=== PATIENT | female | born 1995 | race African-American/Black ===

== ENCOUNTER 2017-10-18 17:09 | Emergency (ER) | payer SELFPAY ==
[~2017-10-18 17:09] MED LIST: AMOX875 PO; IBUP800T23 PO
[2017-10-18 17:12] VITALS: BP 140/77; PULSE 97; RESP 16; TEMP 98.2; O2SAT 97
[2017-10-18 19:08] LABS: AUTOMATED NEUTROPHIL # 5.7 TH/MM3 (1.8-7.7); BASOPHIL # 0.1 TH/MM3 (0-0.2); BASOPHIL % 0.7 % (0.0-2.0); EOSINOPHIL # 0.2 TH/MM3 (0-0.4); EOSINOPHIL % 2.6 % (0.0-4.0); HEMATOCRIT 34.2 % (35.0-46.0); HEMOGLOBIN 11.1 GM/DL (11.6-15.3); LYMPH % 25.9 % (9.0-44.0); LYMPHOCYTE # 2.3 TH/MM3 (1.0-4.8); MEAN CORPUSCULAR HGB CONC 32.4 % (32.0-36.0); MEAN PLATELET VOLUME 9.1 FL (7.0-11.0); MONO % 6.4 % (0.0-8.0); MONOCYTE # 0.6 TH/MM3 (0-0.9); NEUT % 64.4 % (16.0-70.0); PLATELET COUNT 348 TH/MM3 (150-450); RED BLOOD COUNT 4.62 MIL/MM3 (4.00-5.30); RED CELL DISTRIBUTION WIDTH 15.8 % (11.6-17.2); WHITE BLOOD COUNT 8.9 TH/MM3 (4.0-11.0)
[2017-10-18 19:27] LABS: BICARBONATE 32.9 MEQ/L (21.0-32.0); CALCIUM 8.8 MG/DL (8.5-10.1); CREATININE 0.78 MG/DL (0.50-1.00)
[2017-10-18] MEDS ORDERED: BP MED PO (19:49)
[2017-10-18] MEDS ORDERED: KETOROLAC TROMETHAMINE 30 MG/ML (IVP) VIAL IV PUSH ONE (20:15)
--- NOTE | 2017-10-18 20:20 | PD ---
HPI Chief Complaint: Abdominal Pain Time Seen by Provider: 19:59 Travel History International Travel<30 days: No Contact w/Intl Traveler<30days: No Traveled to known affect area: No History of Present Illness HPI 21-year-old female here for evaluation of abdominal pain. The patient reports having pain in her mid abdomen for the last 2-3 weeks. She describes the pain as sharp/pressure, worse with movements and lifting. She denies history of abdominal surgeries. No fevers or chills. No nausea or vomiting. No urinary symptoms. No vaginal bleeding or discharge. She is sexually active with one partner and believe she is in a monogamous relationship. Basic labs and urine GC and chlamydia were ordered by the nurse practitioner in triage. [facility] Past Medical History Hypertension: Yes ?: Not LMP: 09/28/17 : 0 Past Surgical History Surgical History: No Previous Surgery Social History Alcohol Use: Yes Tobacco Use: No Substance Use: No (MARIJUANA) Allergies-Medications (Allergen,Severity, Reaction): Coded Allergies: No Known Allergies (Unverified Allergy, Unknown, 10/18/17) Reported Meds & Prescriptions Reported Meds & Active Scripts Active Reported [Bp Med] PO DAILY Review of Systems Except as stated in HPI: all other systems reviewed are Neg Physical Exam Narrative GENERAL: Well-developed, well-nourished, overweight, comfortable, no apparent distress. SKIN: Focused skin assessment warm/dry. No rash. HEAD: Atraumatic. Normocephalic. EYES: Pupils equal and round. No scleral icterus. No injection or drainage. ENT: Mucous membranes pink and moist. NECK: Trachea midline. No JVD. CARDIOVASCULAR: Regular rate and rhythm. No murmur appreciated. RESPIRATORY: No accessory muscle use. Clear to auscultation. Breath sounds equal bilaterally. GASTROINTESTINAL: Abdomen soft, nondistended. Mild periumbilical tenderness without peritoneal signs. Rest of abdomen is soft and nontender. No hernias. MUSCULOSKELETAL: No obvious deformities. No clubbing. No cyanosis. No edema. NEUROLOGICAL: Awake and alert. No obvious cranial nerve deficits. Motor grossly within normal limits. Normal speech. PSYCHIATRIC: Appropriate mood and affect; insight and judgment normal. Data Data Last Documented VS Vital Signs Date Time Temp Pulse Resp B/P (MAP) Pulse Ox O2 Delivery O2 Flow Rate FiO2 10/18/17 17:12 98.2 97 16 140/77 (98) 97 Orders Orders Basic Metabolic Panel (Bmp) (10/18/17 17:14) Complete Blood Count With Diff (10/18/17 17:14) Urinalysis - C+S If Indicated (10/18/17 17:14) Ed Urine Pregnancytest Poc (10/18/17 17:14) Gc And Chlamydia Pcr (10/18/17 17:14) Ct Abd/Pel W Iv Contrast(Rout) (10/18/17 20:03) Ketorolac Inj (Toradol Inj) (10/18/17 20:15) Iohexol 350 Inj (Omnipaque 350 Inj) (10/18/17 20:25) Labs Laboratory Tests Test 10/18/17 18:34 10/18/17 21:41 White Blood Count 8.9 TH/MM3 Red Blood Count 4.62 MIL/MM3 Hemoglobin 11.1 GM/DL Hematocrit 34.2 % Mean Corpuscular Volume 74.0 FL Mean Corpuscular Hemoglobin 24.0 PG Mean Corpuscular Hemoglobin Concent 32.4 % Red Cell Distribution Width 15.8 % Platelet Count 348 TH/MM3 Mean Platelet Volume 9.1 FL Neutrophils (%) (Auto) 64.4 % Lymphocytes (%) (Auto) 25.9 % Monocytes (%) (Auto) 6.4 % Eosinophils (%) (Auto) 2.6 % Basophils (%) (Auto) 0.7 % Neutrophils # (Auto) 5.7 TH/MM3 Lymphocytes # (Auto) 2.3 TH/MM3 Monocytes # (Auto) 0.6 TH/MM3 Eosinophils # (Auto) 0.2 TH/MM3 Basophils # (Auto) 0.1 TH/MM3 CBC Comment DIFF FINAL Differential Comment Blood Urea Nitrogen 9 MG/DL Creatinine 0.78 MG/DL Random Glucose 92 MG/DL Calcium Level 8.8 MG/DL Sodium Level 138 MEQ/L Potassium Level 3.6 MEQ/L Chloride Level 99 MEQ/L Carbon Dioxide Level 32.9 MEQ/L Anion Gap 6 MEQ/L Estimat Glomerular Filtration Rate 113 ML/MIN Urine Color YELLOW Urine Turbidity CLEAR Urine pH 7.5 Urine Specific [place] GREATER THAN 1.050 Urine Protein 30 mg/dL Urine Glucose (UA) NEG mg/dL Urine Ketones NEG mg/dL Urine Occult Blood NEG Urine Nitrite NEG Urine Bilirubin NEG Urine Urobilinogen LESS THAN 2.0 MG/DL Urine Leukocyte Esterase NEG Urine WBC 1 /hpf Urine Squamous Epithelial Cells 3 /hpf Microscopic Urinalysis Comment CULT NOT INDICATED MDM Medical Decision Making Medical Screen Exam Complete: Yes Emergency Medical Condition: Yes Medical Record Reviewed: Yes Differential Diagnosis Musculoskeletal pain, appendicitis, colitis, UTI, cystitis, , ectopic , ovarian cyst, ovarian torsion, PID Narrative Course Vital signs reviewed. CBC: WBC 8.9, hemoglobin 11.1, hematocrit 34.2, platelets 348. BMP is unremarkable. Urine is negative. UA: Is not suggestive of UTI. CT abdomen pelvis: CONCLUSION: 1. 2.4 x 2.6 cm cyst within the left ovary. The reproductive organs are otherwise intact. 2. CT scan of the abdomen and pelvis is otherwise within normal limits. Patient was made aware of all findings. She is resting comfortably. She is not in any distress. She is stable for discharge home with outpatient follow- up. I will give her the information to the [facility] here to follow- up with this week. She was advised on when to return to the emergency department. She verbalizes understanding and agreement with plan. Diagnosis Primary Impression: Left ovarian cyst Referrals: [facility] 3 days Additional Instructions: Follow-up with a informatics physician liaison this week. Return to the emergency department for worsening symptoms or any other concerns. Disposition: 01 DISCHARGE HOME Condition: Stable Mason Cuevas MD Oct 18, 2017 20:20
[2017-10-18] MEDS ORDERED: IOHEXOL 350 MG/ML 10 ML VIAL (for RAD DIAG) IVCONTRAST ONE (20:25)
--- NOTE | 2017-10-18 21:03 | RADRPT ---
EXAM DATE/TIME: 10/18/2017 20:24 [place] COMPARISON: No previous studies available for comparison. INDICATIONS : Left abdomen and back pain for one week. IV CONTRAST: 100 cc Omnipaque 350 (iohexol) IV ORAL CONTRAST: No oral contrast ingested. RADIATION DOSE: 16.49 CTDIvol (mGy) MEDICAL HISTORY : Hypertension. SURGICAL HISTORY : None. ENCOUNTER: Initial ACUITY: 1 day PAIN SCALE: 5/10 LOCATION: Left abdomen and back. TECHNIQUE: Volumetric scanning of the abdomen and pelvis was performed. Using automated exposure control and ad justment of the mA and/or kV according to patient size, radiation dose was kept as low as reasonably achievable to obtain optimal diagnostic quality images. DICOM format image data is available electro nically for review and comparison. FINDINGS: LOWER LUNGS: The visualized lower lungs are clear. LIVER: Homogeneous density without lesion. There is no dilation of the biliary tree. No calcified [place] es. SPLEEN: Normal size without lesion. PANCREAS: Within normal limits. KIDNEYS: Normal in size and shape. There is no mass, stone or hydronephrosis. ADRENAL GLANDS: Within normal limits. VASCULAR: There is no aortic aneurysm. BOWEL/MESENTERY: The stomach, small bowel, and colon demonstrate no acute abnormality. There is no free intraperitone al air or fluid. ABDOMINAL WALL: Within normal limits. RETROPERITONEUM: There is no lymphadenopathy. BLADDER: No wall thickening or mass. REPRODUCTIVE: The exam demonstrates a 2.4 x 2.6 cm cyst within the left ovary. The reproductive organs are otherwis e intact. INGUINAL: There is no lymphadenopathy or hernia. MUSCULOSKELETAL: Within normal limits for patient age. CONCLUSION: 1. 2.4 x 2.6 cm cyst within the left ovary. The reproductive organs are otherwise intact. 2. CT scan of the abdomen and pelvis is otherwise within normal limits. Nicolás Cummings MD on October 18, 2017 at 20:59 Board Certified Radiologist. This report was verified electronically.
[2017-10-18 22:04] LABS: BILIRUBIN, URINE NEG (NEG); BLOOD, URINE NEG (NEG); GLUCOSE,URINE NEG (NEG); KETONE, URINE NEG (NEG); NITRITE,URINE NEG (NEG); PH, URINE 7.5 (5.0-8.5); SQUAMOUS EPITHELIAL CELL URINE 3 /hpf (0-5); URINE COLOR YELLOW (YELLW/STRAW); URINE LEUKOCYTE ESTERASE NEG (NEG)
== END 2017-10-18 22:47 | disposition home or self-care (01) ==
LOC: NEPD 17:09
DX: N83.202 Unspecified ovarian cyst, left side (principal); I10 Essential (primary) hypertension
CPT/HCPCS: 74177; 80048; 81001; 84703; 85025; 87491; 87591; 96374; 99284; J1885; Q9967

== ENCOUNTER 2017-12-27 10:06 | Emergency (ER) | payer OTHER ==
[~2017-12-27] VITALS: Ht 170.2 cm; Wt 110.0 kg
[~2017-12-27 10:06] MED LIST changes: -AMOX875 PO; +BP MED PO; -IBUP800T23 PO
[2017-12-27 10:14] VITALS: BP 159/91; PULSE 80; RESP 18; TEMP 98.6; O2SAT 100
[2017-12-27] MEDS ORDERED: IBUPROFEN 600 MG TAB PO ONE (10:30)
--- NOTE | 2017-12-27 10:32 | PD ---
HPI Chief Complaint: Medical Clearance Time Seen by Provider: 10:23 Travel History International Travel<30 days: No Contact w/Intl Traveler<30days: No Traveled to known affect area: No History of Present Illness HPI The patient is a 22-year-old female who presents emergency department for intermittent headaches and elevated blood pressure. The patient does have a history of hypertension, currently takes losartan 50 mg and hydrocortisone 12.5 mg daily. The patient did not take her dose of medication this morning, has not refilled her medication. The patient does note intermittent left-sided headaches associated with nausea and occasional photophobia. The headache is located behind the left eye, intermittent, but denies any redness to the left eye or blurry vision. She denies any history of glaucoma. The patient's last menstrual cycle is unknown, however, she denies as she is not currently sexually active. The patient cannot recall the last time she had her kidney function checked for her antihypertensive medications. Symptoms are mild to moderate. The patient states her blood pressure has been elevated recently with a systolic in the 160s resulting in headache. She denies any focal deficits. She denies any back pain. PFSH Past Medical History Hypertension: Yes ?: Not : 0 Social History Alcohol Use: Yes Tobacco Use: No Substance Use: No (MARIJUANA) Allergies-Medications (Allergen,Severity, Reaction): Coded Allergies: No Known Allergies (Unverified Allergy, Unknown, 12/27/17) Reported Meds & Prescriptions Reported Meds & Active Scripts Active Reported Losartan (Losartan Potassium) 25 Mg Tab Unknown Dose PO DAILY Review of Systems Except as stated in HPI: all other systems reviewed are Neg Eyes: Positive: Photophobia, No: Diploplia, Blurred Vision HENT: Positive: Headaches, No: Neck Stiffness, Neck Pain Cardiovascular: No: Chest Pain or Discomfort Respiratory: No: Shortness of Breath Gastrointestinal: Positive: Nausea, No: Vomiting, Abdominal Pain Neurologic: Positive: Headache, No: Weakness, Dizziness, Focal Abnormalities, Change in Mentation Physical Exam Narrative GENERAL: Awake, alert, pleasant 22-year-old female who appears her stated age and is in no acute respiratory distress. SKIN: Focused skin assessment warm/dry. HEAD: Atraumatic. Normocephalic. EYES: Pupils equal and round. Pupils are 3 mm bilateral and reactive. EOMs are intact. Patient is able to see fingers at a distance of 2 feet without difficulty. The patient's lower lid is slightly introverted, eyelashes are vertical on the lower lid. ENT: No nasal bleeding or discharge. Mucous membranes pink and moist. NECK: Trachea midline. No JVD. No meningeal signs. CARDIOVASCULAR: Regular rate and rhythm. No murmur appreciated. RESPIRATORY: No accessory muscle use. Clear to auscultation. Breath sounds equal bilaterally. MUSCULOSKELETAL: No obvious deformities. No clubbing. No cyanosis. No edema. NEUROLOGICAL: Awake and alert. No obvious cranial nerve deficits. Motor grossly within normal limits. Normal speech. Nonfocal. Oriented 4. PSYCHIATRIC: Appropriate mood and affect; insight and judgment normal. Data Data Last Documented VS Vital Signs Date Time Temp Pulse Resp B/P (MAP) Pulse Ox O2 Delivery O2 Flow Rate FiO2 12/27/17 10:14 98.6 80 18 159/91 (113) 100 Orders Orders Ed Urine Pregnancytest Poc (12/27/17 10:27) Basic Metabolic Panel (Bmp) (12/27/17 10:27) Ibuprofen (Motrin) (12/27/17 10:30) Labs Laboratory Tests Test 12/27/17 11:15 Blood Urea Nitrogen 8 MG/DL Creatinine 0.83 MG/DL Random Glucose 90 MG/DL Calcium Level 8.5 MG/DL Sodium Level 139 MEQ/L Potassium Level 3.8 MEQ/L Chloride Level 103 MEQ/L Carbon Dioxide Level 29.8 MEQ/L Anion Gap 6 MEQ/L Estimat Glomerular Filtration Rate 104 ML/MIN [facility] Medical Decision Making Medical Screen Exam Complete: Yes Emergency Medical Condition: Yes Medical Record Reviewed: Yes Interpretation(s) Laboratory Tests Test 12/27/17 11:15 Blood Urea Nitrogen 8 MG/DL Creatinine 0.83 MG/DL Random Glucose 90 MG/DL Calcium Level 8.5 MG/DL Sodium Level 139 MEQ/L Potassium Level 3.8 MEQ/L Chloride Level 103 MEQ/L Carbon Dioxide Level 29.8 MEQ/L Anion Gap 6 MEQ/L Estimat Glomerular Filtration Rate 104 ML/MIN Differential Diagnosis Differential diagnosis includes hypertension, hypertensive urgency, hypertensive emergency, migraine, tension headache, glaucoma. Narrative Course BMP was sent to lab. Bedside UA test was obtained, was negative. The patient was administered ibuprofen 600 mg orally. BMP is unremarkable, the patient's BUN, creatinine, potassium were normal. I will refill the patient's antihypertensive medications. She will be administered ibuprofen as needed for headache the patient is advised to follow-up with her primary physician. Return if symptoms worsen or progress. Diagnosis Primary Impression: Hypertension Qualified Codes: I10 - Essential (primary) hypertension Additional Impression: Cephalgia Qualified Codes: R51 - Headache Patient Instructions: General Instructions Additional Instructions: Continue medication as previously directed. Follow-up with her primary physician. Please provide the patient a copy of her labs at discharge. Med/Other Pt SpecificInfo: Prescription(s) given Scripts Losartan/Hydrochlorothiazide (Losartan-Hctz 50-12.5 mg Tab) 50 Mg-12.5 Mg Tablet 1 TAB PO DAILY for 30 Days Prov: Stan Reddy MD 12/27/17 Disposition: 01 DISCHARGE HOME Condition: Stable Stan Reddy MD December 27, 2017 10:32
[2017-12-27] MEDS ORDERED: LOSA25TA PO (11:09)
[2017-12-27 11:41] LABS: BICARBONATE 29.8 MEQ/L (21.0-32.0); CALCIUM 8.5 MG/DL (8.5-10.1); CREATININE 0.83 MG/DL (0.50-1.00)
[2017-12-27] MEDS ORDERED: LOSA50TA6 PO (11:46)
[2017-12-27 11:58] VITALS: BP 117/77; PULSE 81; RESP 16; O2SAT 100
[2017-12-27] MEDS ORDERED: LOSARTAN 50 MG TAB PO ONE (12:00)
[2017-12-27] MEDS ORDERED: HYDROCHLOROTHIAZIDE 12.5 MG CAP PO ONE (12:00)
== END 2017-12-27 12:01 | disposition home or self-care (01) ==
LOC: NEPD 10:06
DX: I10 Essential (primary) hypertension (principal); R51 Headache
CPT/HCPCS: 80048; 84703; 99283